=== PATIENT | male | born 1995 | race Hispanic/Latino ===

== ENCOUNTER 2019-06-08 08:51 | Emergency (ER) | payer SELFPAY ==
[~2019-06-08] VITALS: Ht 162.6 cm; Wt 70.0 kg
[~2019-06-08 08:51] MED LIST: BENADRYL 50MG C50 MG PO; BENADRYL25 MG OR; CORTAID1 % EX; ELIMITE60 GM TOP; NO HOME MEDS; PRILOSEC20 MG/CAP PO
[2019-06-08 10:27] LABS: HEMATOCRIT 48.3 % (39.0-50.0); HEMOGLOBIN 16.5 g/dl (14.0-18.0); IMMATURE GRANULOCYTES 0.6 % (0.0-5.0); MEAN CELL VOLUME 92.4 fL CALC (80.0-100.0); MEAN CORPUSCULAR HGB 31.5 pG CALC (26.0-32.0); MEAN CORPUSCULAR HGB CONC 34.2 g/L CALC (32.0-36.0); NEUT# 8.45 thou/uL (1.82-7.42); RED BLOOD COUNT 5.23 mill/uL (4.70-6.10); RED CELL DISTRI WIDTH 12.6 % (11.5-15.5)
[2019-06-08 10:38] LABS: ALBUMIN 4.7 g/dL (3.2-5.0); ALKALINE PHOSPHATASE 74 u/l (38-126); ANION GAP 17 (6-22 (CALC)); BUN 12 mg/dL (9-20); BUN/CREATININE RATIO 17 (12-20 (CALC)); CARBON DIOXIDE 23 mmol/l (22-30); CHLORIDE 105 mmol/l (95-108); CREATININE 0.7 mg/dL (0.7-1.3); GFR > 60 ML/MIN (>=60 (CALC)); GFR FOR AFR.AMER. > 60 ML/MIN (>=60 (CALC)); POTASSIUM 3.8 mmol/l (3.5-5.1); SGOT/AST 26 u/l (17-59); SODIUM 141 mmol/l (137-146); TOTAL PROTEIN 7.9 g/dL (6.3-8.2)
[2019-06-08] MEDS ORDERED: PROTONIX40 M2 PO (11:01)
[2019-06-08] MEDS ORDERED: ONDANSETRON4 MG PO (11:01)
[2019-06-08 11:05] VITALS: BP 131/74
== END 2019-06-08 11:05 | disposition home or self-care (01) | DRG 392 ==
LOC: ED 08:51
PROVIDERS: Emergency Medicine
DX: R11.10 Vomiting, unspecified (principal); R19.7 Diarrhea, unspecified